=== PATIENT | male | born 1985 | race Two or more races ===

== ENCOUNTER 2019-05-10 12:12 | Emergency (ER) | payer BC ==
[~2019-05-10] VITALS: Ht 170.2 cm; Wt 120.2 kg
[~2019-05-10 12:12] MED LIST: FUROSEMIDE20 M1 ORAL
--- NOTE | 2019-05-10 12:21 | NUR ---
ED Nurse Note: PT WALKED IN TO ER TODAY FROM HOME. AOX4. PT C/O FEELING "LIGHTHEADED" X 1 WEEK. PT DENIES PAIN, DIZZINESS, NAUSEA, OR VOMITING. GAIT STEADY IN ER. VSS.
[2019-05-10 12:23] VITALS: BP 142/76
--- NOTE | 2019-05-10 12:54 | Emergency Room Report ---
History of Present Illness General Chief Complaint: General Complaint Source: Patient Present Illness HPI 34-year-old male with no significant past medical history here complaining of 1 week of lightheadedness and increased thirst. Patient denies syncope, loss of consciousness, palpitation shortness of breath. 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 Patient denies the change of the degree of dizziness when he changes position, denies vertigo, hearing loss, blurred vision. Patient was recently seen by forms examiner 2 months ago and reports that everything was normal patient saw his primary care provider 1 week ago for yeast infection and had complete blood work done however the results are pending. Patient denies alcohol consumption in the past week, denies smoking or drug use. Denies head trauma, headache, history of migraine headache , or started any new medication. He denies history of diabetes and hypertension. Patient is obese and reports that he does not have a good diet however tries to keep hydrated. Denies being out in the sun for long hours. He also complains of frequent urination x1 week however denies dysuria, hematuria, flank pain, fever and chills he also denies numbness and tingling especially in feet Allergies: Coded Allergies: No Known Allergies (Unverified , 05/18/13) Patient History Past Medical History: see triage record Past Surgical History: unable to obtain Pertinent Family History: none Immunizations: UTD Reviewed Nursing Documentation: PMH: Agreed; PSxH: Agreed Nursing Documentation-PMH Past Medical History: No History, Except For Hx Cancer: Yes - RIGHT THIGH LIPOSARCOMA Review of Systems All Other Systems: negative except mentioned in HPI Physical Exam Vital Signs Date Time Temp Pulse Resp B/P (MAP) Pulse Ox O2 Delivery O2 Flow Rate FiO2 05/10/19 12:18 98.1 93 20 146/72 (96) 95 Room Air Sp02 EP Interpretation: reviewed, normal General Appearance: normal inspection, well appearing, no apparent distress, GCS 15 Head: normocephalic, atraumatic Eyes: bilateral eye normal inspection, bilateral eye PERRL ENT: normal ENT inspection, normal pharynx Neck: normal inspection, full range of motion, supple Respiratory: normal inspection, lungs clear, no wheezing Cardiovascular #1: normal inspection, regular rate, rhythm, no murmur, normal capillary refill Cardiovascular #2: 2+ radial (R), 2+ radial (L) Gastrointestinal: normal inspection, non tender Genitourinary: no CVA tenderness Musculoskeletal: normal inspection, back normal, digits/nails normal, gait/ station normal Neurologic: normal inspection, alert, oriented x3, 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 Campos Diagnostic Impression: Primary Impression: Diabetes ER Course 34-year-old male with no significant past medical history here complaining of 1 week of lightheadedness and increased thirst. Patient denies syncope, loss of consciousness, palpitation shortness of breath. 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 Patient denies the change of the degree of dizziness when he changes position, denies vertigo, hearing loss, blurred vision. Patient was recently seen by forms examiner 2 months ago and reports that everything was normal patient saw his primary care provider 1 week ago for yeast infection and had complete blood work done however the results are pending. Patient denies alcohol consumption in the past week, denies smoking or drug use. Denies head trauma, headache, history of migraine headache , or started any new medication. He denies history of diabetes and hypertension. Patient is obese and reports that he does not have a good diet however tries to keep hydrated. Denies being out in the sun for long hours. He also complains of frequent urination x1 week however denies dysuria, hematuria, flank pain, fever and chills he also denies numbness and tingling especially in feet Ddx considered but are not limited to: Diabetes, anemia, ND, cardiovascular disease, electrolyte abnormality Vital signs: are WNL, pt. is afebrile H&PE are most consistent with diabetes ORDERS: EKG, Chest XR, CBC, CMP, UA, tox screen,metformin ED INTERVENTIONS: None required at this time. DISCHARGE: At this time pt. is stable for d/c to home. Will provide printed patient care instructions, and any necessary prescriptions. Care plan and follow up instructions have been discussed with the patient prior to discharge. Follow with a primary care provider for continuation of metformin and further assessment of diabetes avoid foods with high sugar content, complex carbohydrates I also recommended the patient to follow-up with forms examiner and director of integrated marketing glucose: 318, 4+ glucose in UA EKG Diagnostic Results Rate: normal Rhythm: NSR ST Segments: no acute changes Chest X-Ray Diagnostic Results Chest X-Ray Diagnostic Results : Chest X-Ray Ordered: Yes # of Views/Limited/Complete: 1 View Indication: Other EP Interpretation: Yes PA Xray: Interpretation reviewed, by supervising MD, and agrees with findings. Interpretation: no consolidation, no effusion, no pneumothorax Impression: No acute disease Electronically Signed by: keysha irizarry PA-C Last Vital Signs Date Time Temp Pulse Resp B/P (MAP) Pulse Ox O2 Delivery O2 Flow Rate FiO2 05/10/19 12:23 86 18 Room Air 05/10/19 12:23 98.2 142/76 97 Disposition: HOME, SELF-CARE Condition: Stable Scripts Metformin Hcl* (METFORMIN HCL*) 500 Mg Tablet 500 MG ORAL TWICE A DAY for 10 Days, #20 TAB Prov: Keysha Andrade 05/10/19 Patient Instructions: Diabetes Mellitus and Food Additional Instructions: Follow-up with a primary care provider for assessment of diabetes. Avoid foods with high sugar and content Keysha Andrade May 10, 2019 12:54
[2019-05-10 13:10] LABS: BASOPHILS % (AUTO) 1.2 % (0.0-2.0); EOSINOPHILS % (AUTO) 0.6 % (0.0-3.0); HEMATOCRIT 42.5 % (42.0-52.0); HEMOGLOBIN 14.3 G/DL (14.2-18.0); LYMPHOCYTES % (AUTO) 21.4 % (20.0-45.0); MEAN CORPUSCULAR VOLUME 80 FL (80-99); MONOCYTES % (AUTO) 4.3 % (1.0-10.0); NEUTROPHILS % (AUTO) 72.4 % (45.0-75.0); PLATELET COUNT 305 K/UL (150-450); RED BLOOD COUNT 5.33 M/UL (4.70-6.10); RED CELL DISTRIBUTION WIDTH 12.5 % (11.6-14.8)
[2019-05-10 13:31] LABS: ANION GAP 7 mmol/L (5-15); BLOOD UREA NITROGEN 12 mg/dL (7-18); CALCIUM 9.7 MG/DL (8.5-10.1); CARBON DIOXIDE 25 MMOL/L (21-32); CHLORIDE 94 MMOL/L (98-107); CREATININE 1.1 MG/DL (0.55-1.30); POTASSIUM 3.5 MMOL/L (3.5-5.1); SODIUM 126 MMOL/L (136-145)
[2019-05-10 13:44] LABS: ALANINE AMINOTRANSFERASE 84 U/L (12-78); ALBUMIN 4.1 G/DL (3.4-5.0); ALKALINE PHOSPHATASE 129 U/L (46-116); ASPARTATE AMINO TRANSFERASE 45 U/L (15-37); BILIRUBIN,TOTAL 0.3 MG/DL (0.2-1.0)
[2019-05-10 13:45] LABS: APPEARANCE,URINE CLEAR; BILIRUBIN, URINE NEGATIVE (NEGATIVE); COLOR,URINE PALE YELLOW; GLUCOSE, URINE (UA) 4+ (NEGATIVE); KETONES,URINE 4+ (NEGATIVE); LEUKOCYTE ESTERASE ,URINE NEGATIVE (NEGATIVE); NITRITE,URINE NEGATIVE (NEGATIVE); PH,URINE 5 (4.5-8.0); PROTEIN,URINE NEGATIVE (NEGATIVE); UROBILINOGEN,URINE NORMAL MG/DL (0.0-1.0)
[2019-05-10] MEDS ORDERED: METFORMIN HCL500 M1 ORAL (14:28)
--- NOTE | 2019-05-10 14:31 | NUR ---
ED Nurse Note: PT LAYING PEACEFULLY IN BED IN NAD. AOX4. PRESCRIPTION AND DISCHARGE PAPERWORK EXPLAINED TO PT. PT VERBALIZES UNDERSTANDING AND ALL QUESTIONS ANSWERED. PRESCRIPTION AND DISCHARGE PAPERWORKED GIVEN TO PT AND ID WRISTBAND REMOVED. PT WALKED OUT OF ER WITH STEADY GAIT AND ALL BELONGINGS.
[2019-05-10 14:32] VITALS: BP 136/78
--- NOTE | 2019-05-10 14:33 | Diagnostic Imaging Report ---
Indication: Chest pain Comparison: None A single view chest radiograph was obtained. Findings: Cardiomediastinal appearance is within normal limits for age. The lungs are clear. Pulmonary vascularity is appropriate. The diaphragmatic contour is smooth and costophrenic angles are sharp. No pleural effusions are identified. The bones are unremarkable. Impression: No acute findings
--- NOTE | 2019-05-11 15:31 | Cardiology Report ---
APPROVED REPORT EKG Measurement Heart [id number] Suspect arm lead reversal, interpretation assumes no reversal Normal sinus rhythm with sinus arrhythmia Left posterior fascicular block Nonspecific T wave abnormality Abnormal ECG
== END 2019-05-10 14:33 | disposition home or self-care (01) ==
LOC: EMR 13:26
DX: E11.9 Type 2 diabetes mellitus without complications (principal)
CPT/HCPCS: 36415; 71045; 80053; 80307; 81003; 84443; 85025; 93005; 99283